=== PATIENT | male | born 1950 ===

== ENCOUNTER 2017-08-09 08:24 | Emergency (ER) | payer MEDICARE, OTHER ==
[~2017-08-09] VITALS: Ht 172.7 cm; Wt 77.1 kg
[~2017-08-09 08:24] MED LIST: Flonase 0.05% N16 GM; Hair, Skin & N1 EACH PO; LEVSOD150 PO; NAPR500 PO
[2017-08-09] MEDS ORDERED: Amoxicillin500 MG PO (09:29)
[2017-08-31] MEDS ORDERED: NAPR500EC (11:10)
[2017-08-31] MEDS ORDERED: Cialis20 MG (11:10)
[2017-08-31] MEDS ORDERED: CHOL10002 (11:10)
== END 2017-08-09 09:41 | disposition home or self-care (01) ==
LOC: ER 08:24
DX: I88.9 Nonspecific lymphadenitis, unspecified (principal); M54.2 Cervicalgia; Z79.899 Other long term (current) drug therapy; Z87.891 Personal history of nicotine dependence
CPT/HCPCS: 99282

== ENCOUNTER 2017-09-07 06:05 | Day surgery (SDC) | payer MEDICARE, OTHER ==
[~2017-09-07] VITALS: Ht 172.7 cm; Wt 78.1 kg
[~2017-09-07 06:05] MED LIST changes: +Amoxicillin500 MG PO; +CHOL10002; +Cialis20 MG; +NAPR500EC
== END 2017-09-07 11:25 | disposition home or self-care (01) ==
LOC: ORSCSDS 06:05
PROVIDERS: Orthopaedic Surgery
PROC: 0PB94ZZ Excision of Right Clavicle, Percutaneous Endoscopic Approach (ICD-10-PCS; principal; 2017-09-07 07:30)
PROC: 0RNJ4ZZ Release Right Shoulder Joint, Percutaneous Endoscopic Approach (ICD-10-PCS; principal; 2017-09-07 07:30)
PROC: 0LS14ZZ Reposition Right Shoulder Tendon, Percutaneous Endoscopic Approach (ICD-10-PCS; principal; 2017-09-07 07:30)
PROC: 0LQ14ZZ Repair Right Shoulder Tendon, Percutaneous Endoscopic Approach (ICD-10-PCS; principal; 2017-09-07 07:30)
DX: M75.121 Complete rotator cuff tear or rupture of right shoulder, not specified as traumatic (principal); M19.011 Primary osteoarthritis, right shoulder; M75.21 Bicipital tendinitis, right shoulder; M75.41 Impingement syndrome of right shoulder; I10 Essential (primary) hypertension; E03.9 Hypothyroidism, unspecified; Z79.899 Other long term (current) drug therapy
CPT/HCPCS: C1713; J0171; J0690; J1100; J2250; J2370; J2405; J3010; J7120